=== PATIENT | female | born 1985 | race Caucasian/White ===

== ENCOUNTER 2018-05-30 10:00 | Day surgery (SDC) | payer OTHER, SELFPAY ==
[~2018-05-30 10:00] MED LIST: Lidocaine 1% PF 5 ML VIAL ONE; Ondansetron HCl/PF 4 MG/2 ML Vial ONE; PROPOFOL 200 MG/20 ML VIAL ONE
[2018-05-30] MEDS ORDERED: Bupivacaine PF 0.5% 30 ML VIAL ONE (10:38)
[2018-05-30] MEDS ORDERED: Fentanyl 100 MCG/2 ML VIAL ONE ×3 (10:41→13:21)
[2018-05-30] MEDS ORDERED: Midazolam HCl 2 mg/2 ml Vial ONE (10:41)
[2018-05-30] MEDS ORDERED: CEFAZOLIN/Water 2 GM/20 ML SYRINGE ONE (11:38)
[2018-05-30] MEDS ORDERED: Meperidine HCl/PF 25 MG/ML VIAL ONE (13:01)
--- NOTE | 2018-05-30 13:07 | RAD ---
RIGHT WRIST INTRAOPERATIVE FLUOROSCOPY TWO VIEWS: History: Wrist fracture. FINDINGS: Intraoperative fluoroscopy was provided for an internal fixation as performed by Dr. Chirinos. Two sp ot fluoroscopic images show volar compression plate and multiple screws to transfix the distal radial fracture, in anatomic alignment. Fluoro time = 16 seconds. POS: [facility]
--- NOTE | 2018-05-31 09:45 | OP ---
DATE OF SURGERY: 05/30/2018 PREOPERATIVE DIAGNOSIS: Right distal radius fracture ([place]). POSTOPERATIVE DIAGNOSIS: Right distal radius fracture ([place]). PROCEDURE: Open reduction internal fixation of right distal radius fracture. ANESTHESIA: General. SURGEON: Blue Chirinos M.D. PARTS PERSON: Kev De Leon PA-C. TOURNIQUET TIME: 40 minutes at 250 mmHg. IMPLANTS: A Synthes 2.4 mm variable angle LCP 2 column volar distal radius plate (54 mm). COMPLICATIONS: None. DRAINS: None. SPECIMEN: None. OUTCOME: Near anatomic alignment. INDICATIONS: The patient is a pleasant 33-year-old lady who is status post fall from a swing, kelly g on her outstretched right arm, sustaining a displaced and dorsally comminuted distal radius fractur e. An attempt was made at closed reduction in the emergency room; however, this proved to be unsucce ssful. The patient now presents with a displaced, angulated and shortened distal radius fracture and as such, we are going to proceed to the operating room for open reduction internal fixation. Today, we discussed risks and benefits of surgery. We have also discussed alternatives including nonsurgic al management or attempt K-wire fixation. I believe all questions have been answered and informed co nsent has been obtained. PROCEDURE IN DETAIL: The patient was brought to the operating room and a timeout performed followed by induction of general anesthesia. The patient was then positioned supine on the OR table with the right arm on a hand board. A sterile prep and drape was then performed of the right upper extremity. A reduction was performed closed achieving near anatomic alignment. Next, the limb was exsanguinat ed with Esmarch bandage, tourniquet inflated to 250 mmHg. A volar distal forearm incision was made e xploiting the interval between the flexor carpi radialis and brachioradialis taking care to preserve the neurovascular bundle and reflected towards the radial side of the incision. The pronator quadrat us was then identified. This was released off the radial border of the distal radius and reflected t o the midline revealing the underlying fracture. Fracture hematoma was lavaged from the wound and th en the fracture reduced and a volar plate applied under C-arm guidance. Once appropriately positione d, a 2.7 mm cortical screw was placed in the vertical limb of the plate holding it to the shaft. Fur ther adjustments were made under C-arm guidance and then a total of 3 locking screws were passed thro ugh the horizontal limb of the plate in standard fashion. Two additional cortical plates were then p laced proximally and then final AP, lateral C-arm images were obtained that showed yarsanism of rad ial length, volar tilt and radial inclination. The wound was then irrigated with bulb syringe and cl osed in layers with 2-0 Vicryl, followed by 3-0 nylon in horizontal mattress fashion for the skin. A Xeroform gauze, Webril, and fiberglass splint was applied to the arm and then patient was transferre d to recovery room in stable condition. There were no complications. She tolerated the procedure we ll.
== END 2018-05-30 14:25 | disposition home or self-care (01) ==
LOC: SDC 10:00
PROVIDERS: ATTEND Orthopaedic Surgery
PROC: 0PSH04Z Reposition Right Radius with Internal Fixation Device, Open Approach (ICD-10-PCS; principal; 2018-05-30)
DX: S52.531A Colles' fracture of right radius, initial encounter for closed fracture (principal); W17.89XA Other fall from one level to another, initial encounter; Z88.1 Allergy status to other antibiotic agents
CPT/HCPCS: 76001; 96374; C1713; J2001; J2175; J2250; J2405; J2704; J3010; S0020